=== PATIENT | female | born 1970 | race Caucasian/White ===

== ENCOUNTER 2021-05-21 16:48 | Emergency (ER) | payer SELFPAY ==
[~2021-05-21] VITALS: Ht 157.5 cm; Wt 79.4 kg
[~2021-05-21 16:48] MED LIST: CATAPRES0.2 MG PO; ESTARYLLA PO; Z LAMICTAL PO; Z LITHIUM CARBON PO; Z.0.SEROQUEL300 MG
[2021-05-21 17:22] LABS: BASOPHILS # (AUTO) 0.1 (0.0-0.1); BASOPHILS % 0.4 % (0.0-1.0); EOSINOPHILS # (AUTO) 0.2 (0.0-0.4); EOSINOPHILS % 1.4 % (0.0-6.0); HEMATOCRIT 43.1 % (34.2-44.1); HEMOGLOBIN 13.9 g/dL (12.0-16.0); LYMPHOCYTES # (AUTO) 1.7 (1.0-3.2); LYMPHOCYTES % 14.9 % (18.0-39.1); MEAN CORPUSCULAR HEMOGLOBIN 26.6 pg (28-32); MEAN CORPUSCULAR HGB CONC 32.3 g/dL (31-35); MEAN CORPUSCULAR VOLUME 82.4 fL (81-99); MONOCYTES # (AUTO) 0.5 (0.2-0.8); MONOCYTES % 4.4 % (4.4-11.3); NEUTROPHILS # (AUTO) 8.8 (2.1-6.9); NEUTROPHILS % 78.3 % (38.7-80.0); PLATELET COUNT 301 x10e3/uL (140-360); RED BLOOD COUNT 5.23 x10e6/uL (3.6-5.1); RED CELL DISTRIBUTION WIDTH 13.7 % (11.7-14.4)
[2021-05-21 17:39] LABS: ALBUMIN 3.8 g/dL (3.5-5.0); ALBUMIN/GLOBULIN RATIO 0.9 (0.8-2.0); ANION GAP 18.4 mmol/L (8-16); CALCIUM 9.3 mg/dL (8.4-10.2); CREATININE, SERUM 0.91 mg/dL (0.57-1.11); POTASSIUM 3.4 mmol/L (3.5-5.1)
[2021-05-21 17:46] LABS: CREATINE KINASE MB 1.2 ng/mL (0-5.0)
[2021-05-21 18:51] LABS: COLOR,URINE YELLOW (YELLOW)
[2021-05-21 18:52] LABS: AMPHETAMINES SCREEN,URINE NEGATIVE (NEGATIVE); BENZODIAZEPINES SCREEN,URINE NEGATIVE (NEGATIVE); CLARITY,URINE SL CLOUDY (CLEAR); KETONES,URINE NEGATIVE (NEGATIVE); LEUKOCYTE ESTERASE ,URINE SMALL (NEGATIVE); NITRITE,URINE POSITIVE (NEGATIVE); PHENCYCLIDINE SCREEN,URINE NEGATIVE (NEGATIVE); PROTEIN,URINE DIPSTICK 1+ (NEGATIVE); URINE UROBILINOGEN 0.2 mg/dL (0.2 - 1)
[2021-05-21 19:04] LABS: BACTERIA,URINE MANY /HPF
== END 2021-05-21 22:20 | disposition home or self-care (01) ==
LOC: ER 17:03
DX: R53.1 Weakness (principal); N39.0 Urinary tract infection, site not specified; F32.9 Major depressive disorder, single episode, unspecified; R94.31 Abnormal electrocardiogram [ECG] [EKG]
CPT/HCPCS: 36415; 70450; 71045; 80053; 80178; 80307; 81001; 82550; 82553; 84484; 85025; 99283